=== PATIENT | female | born 1965 ===

== ENCOUNTER 2021-05-24 06:00 | Outpatient (RCR) | payer MEDICAID, SELFPAY | END 2021-06-18 23:59 | disposition home or self-care (01) | LOC: TPT 06:00 | PROVIDERS: Referring Provider Orthopaedic Surgery; Visit Provider Orthopaedic Surgery | DX: M17.12 Unilateral primary osteoarthritis, left knee (principal) | CPT/HCPCS: 97032; 97110; 97140; 97163 ==

== ENCOUNTER 2021-11-16 06:00 | Outpatient (RCR) | payer MEDICAID, SELFPAY | END 2021-11-18 23:59 | disposition home or self-care (01) | LOC: TPT 06:00 | PROVIDERS: Visit Provider Orthopaedic Surgery | DX: Z96.651 Presence of right artificial knee joint (principal) | CPT/HCPCS: 97110; 97163 ==

== ENCOUNTER 2021-11-19 06:00 | Outpatient (RCR) | payer MEDICAID, SELFPAY | END 2021-12-19 23:59 | disposition home or self-care (01) | LOC: TPT 06:00 | PROVIDERS: Visit Provider Orthopaedic Surgery | DX: M17.11 Unilateral primary osteoarthritis, right knee (principal) | CPT/HCPCS: 97110 ==